=== PATIENT | male | born 1970 | race Caucasian/White ===

== ENCOUNTER 2017-02-24 14:00 | Emergency (ER) | payer BC ==
[~2017-02-24 14:00] MED LIST: BACLOFEN10 M1 PO; BENADRYL50 MG PO; BENTYL10 M1 PO; CHANTIX START M1 TAB PO; DILAUDID 2MG TAB2 MG PO; EC-NAPROSYN500 MG PO; ED BACLOFEN10 MG PO; ED PHENERG6 TAB/BOTT PO; GABAPENTIN800 MG PO; NEURONTIN800 M1 PO; NORCO 325 MG-51 TAB PO; OXYCODONE PO; PEN-VEE K500 MG PO; PERCOCET 325 MG1 TAB PO; REGLAN10 M2 PO; ROBAXIN500 MG PO; SOMA350 MG PO; ULTRAM50 M1 PO; VIVLODEX10 MG PO; ZOFRAN ODT8 M1 PO; ZOFRAN8 MG PO
== END 2017-02-24 16:36 | disposition home or self-care (01) ==
LOC: ED 14:00
DX: K59.03 Drug induced constipation (principal); T40.2X5A Adverse effect of other opioids, initial encounter; M54.5 Low back pain; G89.29 Other chronic pain; F11.90 Opioid use, unspecified, uncomplicated; Z87.442 Personal history of urinary calculi
CPT/HCPCS: Q9967

== ENCOUNTER 2017-08-18 14:09 | Emergency (ER) | payer BC ==
[~2017-08-18] VITALS: Ht 175.3 cm; Wt 90.9 kg
[2017-08-18] MEDS ORDERED: VIBRAMYCIN HYC100 MG PO (16:49)
[2017-08-18] MEDS ORDERED: PREDNISONE20 MG PO (16:49)
[2017-08-18 16:55] VITALS: BP 136/78
[2017-08-20] MEDS ORDERED: DULCOLAX5 M1 PO (20:07)
[2017-08-20] MEDS ORDERED: MIRALAX17 GM PO (20:07)
== END 2017-08-18 16:51 | disposition home or self-care (01) ==
LOC: ED 14:09
DX: J18.9 Pneumonia, unspecified organism (principal); R13.10 Dysphagia, unspecified; M54.5 Low back pain; G89.29 Other chronic pain; F17.200 Nicotine dependence, unspecified, uncomplicated; Z96.89 Presence of other specified functional implants
CPT/HCPCS: Q9967

== ENCOUNTER → 2017-08-31 | Day surgery (SDC) | payer BC ==
[2017-08-20 23:17] VITALS: BP 145/94
[~2017-08-31] MED LIST changes: +DULCOLAX5 M1 PO; +LASIX20 M1 PO; +MIRALAX17 GM PO; +PREDNISONE20 MG PO; +PRILOSEC 20MG20 MG PO; +VIBRAMYCIN HYC100 MG PO
== END ==
LOC: MSO 08:32
DX: R13.14 Dysphagia, pharyngoesophageal phase (principal); K21.0 Gastro-esophageal reflux disease with esophagitis; F17.210 Nicotine dependence, cigarettes, uncomplicated
CPT/HCPCS: 00740; A4649; J3010; J7120

== ENCOUNTER 2017-12-21 10:18 | Emergency (ER) | payer BC ==
[~2017-12-21] VITALS: Ht 175.3 cm; Wt 95.5 kg
[2017-12-21] MEDS ORDERED: GLUCOPHAGE1000 MG PO (10:40)
[2017-12-21] MEDS ORDERED: LIPITOR 10M10 MG/TAB PO (10:41)
[2017-12-21 10:57] LABS: EOS # 0.1 (0.04-0.40); EOS % 1.3 % (0.0-4.0); HEMATOCRIT 49.6 % (42.0-52.0); HEMOGLOBIN 16.3 g/dL (13.5-18.0); LYMPH# 1.1 (1.50-4.00); MEAN CELL VOLUME 87 fl (78-100); MEAN CORPUSCULAR HEMOGLOBIN 29 pg (27-31); MEAN CORPUSCULAR HGB CONC 33 g/dL (33-37); MONO # 0.8 (0.20-0.80); NEU # 5.7 (1.40-6.50); PLATELET COUNT 170 K/mm3 (130-400); RED BLOOD COUNT 5.69 M/mm3 (4.20-5.60); RED CELL DISTRIBUTION WIDTH 12.8 % (11.5-14.5); WHITE BLOOD COUNT 7.7 K/mm3 (4.8-10.8)
[2017-12-21 11:07] LABS: ALBUMIN 4.2 g/dL (3.5-5.0); BUN/CREATININE RATIO 17.8 (6.0-26.0); CALCIUM 9.2 mg/dL (8.4-10.2); POTASSIUM 4.3 mmol/L (3.6-5.0); TOTAL BILIRUBIN 0.4 mg/dL (0.2-1.3); TOTAL PROTEIN 7.4 g/dL (6.3-8.2)
[2017-12-21 11:10] LABS: CKMB ISOENZYME 1.2 ng/mL (0.6-3.5)
[2017-12-21 11:17] LABS: TROPONIN-I < 0.03 ng/mL (0.00-0.06)
[2017-12-21 11:18] LABS: D-DIMER 0.24 mg/L FEU (0.15-0.50)
[2017-12-21] MEDS ORDERED: PHENERGAN 25 TA25 MG PO (11:35)
[2017-12-21 13:05] VITALS: BP 119/79
== END 2017-12-21 13:07 | disposition home or self-care (01) ==
LOC: ED 10:18
PROVIDERS: Nurse Practitioner Primary Care
DX: F41.9 Anxiety disorder, unspecified (principal); R07.89 Other chest pain; E11.9 Type 2 diabetes mellitus without complications; Z79.84 Long term (current) use of oral hypoglycemic drugs; I10 Essential (primary) hypertension; E78.5 Hyperlipidemia, unspecified; K21.9 Gastro-esophageal reflux disease without esophagitis; Z87.442 Personal history of urinary calculi; F17.200 Nicotine dependence, unspecified, uncomplicated; R51 Headache
CPT/HCPCS: J1885; J2405; J7030

== ENCOUNTER 2018-07-05 14:42 | Emergency (ER) | payer BC ==
[~2018-07-05] VITALS: Wt 90.9 kg
[~2018-07-05 14:42] MED LIST changes: +GLUCOPHAGE1000 MG PO; +LIPITOR 10M10 MG/TAB PO; +OMEPRAZOLE40 MG PO; +PHENERGAN 25 TA25 MG PO; -PRILOSEC 20MG20 MG PO
[2018-07-05] MEDS ORDERED: JANUVIA25 MG (14:55)
[2018-07-05 15:46] LABS: BASO # 0.1 (0.02-0.10); EOS # 0.2 (0.04-0.40); EOS % 1.6 % (0.0-4.0); HEMATOCRIT 46.7 % (42.0-52.0); HEMOGLOBIN 15.8 g/dL (13.5-18.0); LYMPH# 3.4 (1.50-4.00); MEAN CELL VOLUME 87 fl (78-100); MEAN CORPUSCULAR HEMOGLOBIN 30 pg (27-31); MEAN CORPUSCULAR HGB CONC 34 g/dL (33-37); MEAN PLATELET VOLUME 9.7 fl (7.4-10.4); MONO # 0.6 (0.20-0.80); NEU # 5.8 (1.40-6.50); PLATELET COUNT 228 K/mm3 (130-400); RED BLOOD COUNT 5.36 M/mm3 (4.20-5.60); RED CELL DISTRIBUTION WIDTH 12.8 % (11.5-14.5)
[2018-07-05 15:50] LABS: ALBUMIN 4.1 g/dL (3.5-5.0); BUN/CREATININE RATIO 16.1 (6.0-26.0); CALCIUM 9.1 mg/dL (8.4-10.2); POTASSIUM 4.2 mmol/L (3.6-5.0); TOTAL BILIRUBIN 0.5 mg/dL (0.2-1.3); TOTAL PROTEIN 7.1 g/dL (6.3-8.2)
[2018-07-05] MEDS ORDERED: ZANTAC150 M1 PO (17:49)
[2018-07-05] MEDS ORDERED: PRILOSEC 20MG20 MG PO (17:49)
[2018-07-05] MEDS ORDERED: CARAFATE 1GM1 G PO (17:49)
[2018-07-05 18:29] VITALS: BP 125/70
== END 2018-07-05 18:40 | disposition home or self-care (01) ==
LOC: ED 14:42
PROVIDERS: Nurse Practitioner Primary Care
DX: K21.9 Gastro-esophageal reflux disease without esophagitis (principal); F17.210 Nicotine dependence, cigarettes, uncomplicated; K58.9 Irritable bowel syndrome, unspecified; G89.29 Other chronic pain; M54.9 Dorsalgia, unspecified
CPT/HCPCS: J1885; J2405; J7030; Q9967

== ENCOUNTER 2019-01-06 19:28 | Emergency (ER) | payer BC ==
[~2019-01-06] VITALS: Ht 177.8 cm; Wt 86.4 kg
[~2019-01-06 19:28] MED LIST changes: +CARAFATE 1GM1 G PO; +JANUVIA25 MG; +PRILOSEC 20MG20 MG PO; +ZANTAC150 M1 PO
[2019-01-06] MEDS ORDERED: XANAX0.5 M1 PO (19:40)
[2019-01-06] MEDS ORDERED: DESYREL50 MG PO (19:41)
[2019-01-06 20:11] LABS: URINE APPEARANCE HAZY; URINE COLOR YELLOW
[2019-01-06 20:12] LABS: PH-URINE 5.5 (5.0 - 8.0); URINE PROTEIN(semi-quant) TRACE mg/dL (NEGATIVE)
[2019-01-06 20:13] LABS: URINE BILIRUBIN NEGATIVE (NEGATIVE); URINE BLOOD TRACE (NEGATIVE); URINE GLUCOSE NEGATIVE (NEGATIVE); URINE KETONE NEGATIVE (NEGATIVE); URINE LEUKOCYTE ESTERASE NEGATIVE (NEGATIVE); URINE NITRATE NEGATIVE (NEGATIVE); URINE UROBILINOGEN NORMAL (NORMAL); URINE WBC 0-1 /hpf (0-3)
[2019-01-06 20:24] LABS: EOS # 0.1 (0.04-0.40); EOS % 1.1 % (0.0-4.0); HEMATOCRIT 46.3 % (42.0-52.0); HEMOGLOBIN 15.7 g/dL (13.5-18.0); LYMPH# 3.2 (1.50-4.00); MEAN CELL VOLUME 88 fl (78-100); MEAN CORPUSCULAR HEMOGLOBIN 30 pg (27-31); MEAN CORPUSCULAR HGB CONC 34 g/dL (33-37); MEAN PLATELET VOLUME 10.3 fl (7.4-10.4); MONO # 0.7 (0.20-0.80); NEU # 4.7 (1.40-6.50); PLATELET COUNT 228 K/mm3 (130-400); RED BLOOD COUNT 5.28 M/mm3 (4.20-5.60); RED CELL DISTRIBUTION WIDTH 12.8 % (11.5-14.5); WHITE BLOOD COUNT 8.8 K/mm3 (4.8-10.8)
[2019-01-06 21:15] LABS: ALBUMIN 3.9 g/dL (3.5-5.0); CALCIUM 9.1 mg/dL (8.4-10.2); TOTAL BILIRUBIN 0.3 mg/dL (0.2-1.3); TOTAL PROTEIN 6.8 g/dL (6.3-8.2)
[2019-01-06] MEDS ORDERED: PREDNISONE10 MG PO (23:50)
[2019-01-07 00:05] VITALS: BP 127/98
[2019-01-07] MEDS ORDERED: HYDROXYZINE HCL25 M1 PO (18:17)
== END 2019-01-07 00:05 | disposition home or self-care (01) ==
LOC: ED 19:28
PROVIDERS: Nurse Practitioner Family
DX: M54.5 Low back pain (principal); M54.16 Radiculopathy, lumbar region; F41.9 Anxiety disorder, unspecified; E11.9 Type 2 diabetes mellitus without complications; K58.9 Irritable bowel syndrome, unspecified; G56.00 Carpal tunnel syndrome, unspecified upper limb; F17.210 Nicotine dependence, cigarettes, uncomplicated; Z88.5 Allergy status to narcotic agent; Z90.49 Acquired absence of other specified parts of digestive tract; Z87.718 Personal history of other specified (corrected) congenital malformations of genitourinary system
CPT/HCPCS: J1100; J1885; J2405; J2550; J3010; J7030

== ENCOUNTER 2019-01-07 17:59 | Emergency (ER) | payer BC ==
[~2019-01-07] VITALS: Ht 175.3 cm; Wt 86.4 kg
[~2019-01-07 17:59] MED LIST changes: +DESYREL50 MG PO; +PREDNISONE10 MG PO; +XANAX0.5 M1 PO
[2019-01-07 18:04] VITALS: BP 137/88
[2019-01-07] MEDS ORDERED: HYDROXYZINE HCL25 M1 PO (18:17)
[2019-01-07 18:36] LABS: EOS % 0.2 % (0.0-4.0); HEMATOCRIT 47.6 % (42.0-52.0); HEMOGLOBIN 15.9 g/dL (13.5-18.0); LYMPH# 3.4 (1.50-4.00); MEAN CELL VOLUME 87 fl (78-100); MEAN CORPUSCULAR HEMOGLOBIN 29 pg (27-31); MEAN CORPUSCULAR HGB CONC 33 g/dL (33-37); MEAN PLATELET VOLUME 9.7 fl (7.4-10.4); MONO # 1.3 (0.20-0.80); PLATELET COUNT 261 K/mm3 (130-400); RED BLOOD COUNT 5.46 M/mm3 (4.20-5.60); RED CELL DISTRIBUTION WIDTH 12.5 % (11.5-14.5); WHITE BLOOD COUNT 17.3 K/mm3 (4.8-10.8)
[2019-01-07 18:37] LABS: NEU # 12.4 (1.40-6.50)
[2019-01-07 19:17] LABS: URINE APPEARANCE CLEAR; URINE COLOR YELLOW; URINE PROTEIN(semi-quant) TRACE mg/dL (NEGATIVE)
[2019-01-07 19:18] LABS: URINE BILIRUBIN NEGATIVE (NEGATIVE); URINE BLOOD TRACE (NEGATIVE); URINE GLUCOSE NEGATIVE (NEGATIVE); URINE KETONE NEGATIVE (NEGATIVE); URINE LEUKOCYTE ESTERASE NEGATIVE (NEGATIVE); URINE NITRATE NEGATIVE (NEGATIVE); URINE UROBILINOGEN NORMAL (NORMAL)
[2019-01-07 19:24] LABS: URINE WBC 0-1 /hpf (0-3)
[2019-01-07 19:25] LABS: URINE MUCUS PRESENT (NOT PRESENT)
== END 2019-01-07 23:15 | disposition left against medical advice (07) ==
LOC: ED 17:59
PROVIDERS: Family Medicine
DX: M54.5 Low back pain (principal); R10.9 Unspecified abdominal pain; M54.16 Radiculopathy, lumbar region; K21.9 Gastro-esophageal reflux disease without esophagitis; K58.9 Irritable bowel syndrome, unspecified; F17.210 Nicotine dependence, cigarettes, uncomplicated; Z90.49 Acquired absence of other specified parts of digestive tract; Z98.890 Other specified postprocedural states
CPT/HCPCS: J0595; J1885; J2405; J2765; Q9967

== ENCOUNTER 2019-05-03 11:13 | Emergency (ER) | payer BC ==
[~2019-05-03] VITALS: Ht 175.3 cm; Wt 87.3 kg
[~2019-05-03 11:13] MED LIST changes: +HYDROXYZINE HCL25 M1 PO; +OXYCODONE HCL E10 MG PO; +PREDNISONE20 M1 PO; +VALIUM 5MG T5 MG/TAB PO
[2019-05-03] MEDS ORDERED: DILAUDID4 M1 PO (11:26)
[2019-05-03 11:54] LABS: EOS # 0.1 (0.04-0.40); EOS % 0.6 % (0.0-4.0); HEMATOCRIT 51.9 % (42.0-52.0); HEMOGLOBIN 17.1 g/dL (13.5-18.0); LYMPH# 2.8 (1.50-4.00); MEAN CELL VOLUME 88 fl (78-100); MEAN CORPUSCULAR HEMOGLOBIN 29 pg (27-31); MEAN CORPUSCULAR HGB CONC 33 g/dL (33-37); MEAN PLATELET VOLUME 9.4 fl (7.4-10.4); MONO # 0.8 (0.20-0.80); PLATELET COUNT 217 K/mm3 (130-400); RED BLOOD COUNT 5.89 M/mm3 (4.20-5.60)
[2019-05-03 11:59] LABS: NEU # 9.3 (1.40-6.50)
[2019-05-03 12:07] LABS: CALCIUM 10.5 mg/dL (8.3-10.5)
[2019-05-03] MEDS ORDERED: DURAGESIC50 MCG/PAT TD (14:44)
[2019-05-03 14:45] VITALS: BP 108/76
== END 2019-05-03 14:53 | disposition home or self-care (01) ==
LOC: ED 11:13
PROVIDERS: Nurse Practitioner Primary Care
DX: T85.848A Pain due to other internal prosthetic devices, implants and grafts, initial encounter (principal); M54.9 Dorsalgia, unspecified; G89.29 Other chronic pain; E11.9 Type 2 diabetes mellitus without complications; K21.9 Gastro-esophageal reflux disease without esophagitis; F41.9 Anxiety disorder, unspecified; F17.210 Nicotine dependence, cigarettes, uncomplicated; Z98.890 Other specified postprocedural states; Z90.49 Acquired absence of other specified parts of digestive tract; Z96.9 Presence of functional implant, unspecified; Z88.5 Allergy status to narcotic agent
CPT/HCPCS: J2060; J2405; J3010; Q9967

== ENCOUNTER 2019-05-05 19:17 | Emergency (ER) | payer BC ==
[~2019-05-05] VITALS: Ht 177.8 cm; Wt 90.9 kg
[~2019-05-05 19:17] MED LIST changes: +DILAUDID4 M1 PO; +DURAGESIC50 MCG/PAT TD
[2019-05-05 20:04] LABS: BASO # 0.1 (0.02-0.10); EOS # 0.2 (0.04-0.40); EOS % 1.9 % (0.0-4.0); HEMATOCRIT 46.2 % (42.0-52.0); HEMOGLOBIN 15.1 g/dL (13.5-18.0); LYMPH# 3.3 (1.50-4.00); MEAN CELL VOLUME 89 fl (78-100); MEAN CORPUSCULAR HEMOGLOBIN 29 pg (27-31); MEAN CORPUSCULAR HGB CONC 33 g/dL (33-37); MEAN PLATELET VOLUME 9.2 fl (7.4-10.4); MONO # 0.8 (0.20-0.80); NEU # 4.3 (1.40-6.50); PLATELET COUNT 209 K/mm3 (130-400); RED BLOOD COUNT 5.18 M/mm3 (4.20-5.60); RED CELL DISTRIBUTION WIDTH 12.7 % (11.5-14.5); WHITE BLOOD COUNT 8.6 K/mm3 (4.8-10.8)
[2019-05-05 20:20] LABS: ALBUMIN 3.7 g/dL (3.5-5.0); CALCIUM 9.4 mg/dL (8.3-10.5); POTASSIUM 4.4 mmol/L (3.5-5.1); TOTAL BILIRUBIN 0.2 mg/dL (0.2-1.2); TOTAL PROTEIN 6.4 g/dL (6.4-8.3)
[2019-05-05 21:15] VITALS: BP 120/76
== END 2019-05-05 21:25 | disposition home or self-care (01) ==
LOC: ED 19:17
PROVIDERS: Nurse Practitioner Family
DX: G97.1 Other reaction to spinal and lumbar puncture (principal); M54.9 Dorsalgia, unspecified; E11.9 Type 2 diabetes mellitus without complications; G89.29 Other chronic pain; K21.9 Gastro-esophageal reflux disease without esophagitis; F41.9 Anxiety disorder, unspecified; F17.210 Nicotine dependence, cigarettes, uncomplicated; Z90.49 Acquired absence of other specified parts of digestive tract; Z88.5 Allergy status to narcotic agent
CPT/HCPCS: J3010

== ENCOUNTER 2019-07-28 13:20 | Emergency (ER) | payer BC ==
[2019-07-28] MEDS ORDERED: DIAZEPAM10 MG PO (13:28)
[2019-07-28 15:02] VITALS: BP 155/85
== END 2019-07-28 14:37 | disposition home or self-care (01) ==
LOC: ED 13:20
DX: M54.5 Low back pain (principal); G89.29 Other chronic pain; E11.9 Type 2 diabetes mellitus without complications; F41.9 Anxiety disorder, unspecified; K21.9 Gastro-esophageal reflux disease without esophagitis; F17.210 Nicotine dependence, cigarettes, uncomplicated; Z90.49 Acquired absence of other specified parts of digestive tract; Z96.9 Presence of functional implant, unspecified; Z88.5 Allergy status to narcotic agent; Z79.84 Long term (current) use of oral hypoglycemic drugs
CPT/HCPCS: J1885; J3010

== ENCOUNTER → 2019-11-14 | Outpatient (CLI) | payer BC ==
[~2019-11-14] VITALS: Wt 85.6 kg
[~2019-11-14] MED LIST changes: +DIAZEPAM10 MG PO; +DURAGESIC75 MCG/PAT TD; +OXYCODONE HCL10 M1 PO
[2019-11-14 16:37] VITALS: BP 135/106
== END ==
LOC: AMSURD 16:22
DX: Z48.02 Encounter for removal of sutures (principal)

== ENCOUNTER 2020-04-09 02:19 | Emergency (ER) | payer BC ==
[2020-04-09] MEDS ORDERED: DURAGESIC25 MCG/PAT TD (02:37)
[2020-04-09] MEDS ORDERED: HYDROXYZINE HCL25 M1 PO (02:38)
[2020-04-09] MEDS ORDERED: DESYREL 100MG100 MG PO (02:38)
[2020-04-09] MEDS ORDERED: MELATONIN10 M2 PO (02:39)
[2020-04-09] MEDS ORDERED: OMEPRAZOLE40 MG PO (02:40)
[2020-04-09] MEDS ORDERED: PHENERGAN 25 TA25 MG PO (02:40)
[2020-04-09] MEDS ORDERED: SEPTRA DS 8001 TAB PO (03:22)
[2020-04-09 03:29] VITALS: BP 135/96
== END 2020-04-09 03:40 | disposition home or self-care (01) ==
LOC: ED 02:19
DX: L73.9 Follicular disorder, unspecified (principal); L30.9 Dermatitis, unspecified; F17.210 Nicotine dependence, cigarettes, uncomplicated

== ENCOUNTER 2020-05-03 12:30 | Emergency (ER) | payer BC ==
[~2020-05-03] VITALS: Ht 175.3 cm; Wt 90.9 kg
[~2020-05-03 12:30] MED LIST changes: +DESYREL 100MG100 MG PO; +DURAGESIC25 MCG/PAT TD; +MELATONIN10 M2 PO; +SEPTRA DS 8001 TAB PO
[2020-05-03] MEDS ORDERED: MUPIROCIN2% TOP (13:00)
[2020-05-03] MEDS ORDERED: BACTRIM DS 8001 TAB PO (13:00)
[2020-05-03] MEDS ORDERED: VIBRAMYCIN HYC100 MG PO (14:08)
[2020-05-03 14:13] VITALS: BP 160/92
== END 2020-05-03 14:19 | disposition home or self-care (01) ==
LOC: ED 12:30
DX: R21 Rash and other nonspecific skin eruption (principal); T36.95XA Adverse effect of unspecified systemic antibiotic, initial encounter; F17.210 Nicotine dependence, cigarettes, uncomplicated; F41.9 Anxiety disorder, unspecified; K21.9 Gastro-esophageal reflux disease without esophagitis; Z86.14 Personal history of Methicillin resistant Staphylococcus aureus infection

== ENCOUNTER → 2020-07-19 | Outpatient (CLI) | payer BC ==
[~2020-07-19] MED LIST changes: +BACTRIM DS 8001 TAB PO; +MUPIROCIN2% TOP
== END ==
LOC: RAD 12:00
DX: R13.12 Dysphagia, oropharyngeal phase (principal)

== ENCOUNTER → 2020-10-15 | Outpatient (CLI) | payer BC ==
[2020-10-15 15:01] LABS: MAGNESIUM 1.75 mg/dL (1.60-2.60)
[2020-10-15 23:01] LABS: FOLATE (FOLIC ACID) 8.9 ng/mL (7.0-31.4)
[2020-10-16 01:06] LABS: SYPHILIS AB SCREEN w REFLEX Negative (Negative)
[2020-10-16 12:26] LABS: LYME DISEASE EIA Negative (Negative)
[2020-10-16 15:22] LABS: ANA SCREEN with REFLEX Negative (Negative)
== END ==
LOC: LAB 14:12
PROVIDERS: Psychiatry & Neurology Neurology
DX: E55.9 Vitamin D deficiency, unspecified (principal); G62.9 Polyneuropathy, unspecified; R73.02 Impaired glucose tolerance (oral); E53.9 Vitamin B deficiency, unspecified; E61.1 Iron deficiency; E07.9 Disorder of thyroid, unspecified; E53.1 Pyridoxine deficiency; E53.8 Deficiency of other specified B group vitamins; Z79.899 Other long term (current) drug therapy; E61.2 Magnesium deficiency

== ENCOUNTER → 2020-10-16 | Outpatient (CLI) | payer BC | LOC: RAD 10:00 | DX: R13.10 Dysphagia, unspecified (principal) | CPT/HCPCS: Q9967 ==

== ENCOUNTER 2020-10-22 08:30 | Outpatient (RCR) | payer BC | END 2020-12-03 | disposition home or self-care (01) | LOC: SPEECH | DX: R13.13 Dysphagia, pharyngeal phase (principal) ==

== ENCOUNTER → 2020-10-29 | Outpatient (CLI) | payer BC ==
[2020-10-29 16:56] LABS: ALBUMIN 4.1 g/dL (3.5-5.0)
[2020-10-29 16:59] LABS: TOTAL PROTEIN 7.2 g/dL (6.4-8.3)
[2020-10-29 17:01] LABS: TOTAL BILIRUBIN 0.6 mg/dL (0.2-1.2)
[2020-10-29 17:05] LABS: DIRECT BILIRUBIN 0.2 mg/dL (0.0-0.5)
== END ==
LOC: LAB 16:33
PROVIDERS: Psychiatry & Neurology Neurology
DX: Z01.89 Encounter for other specified special examinations (principal)

== ENCOUNTER 2021-03-09 18:46 | Emergency (ER) | payer BC ==
[2021-03-09 18:55] VITALS: BP 143/90
[2021-03-09] MEDS ORDERED: FOLIXAPURE5000 UNIT PO (19:04)
[2021-03-09] MEDS ORDERED: KLONOPIN 0.5MG0.5 MG PO (20:53)
== END 2021-03-09 20:58 | disposition home or self-care (01) ==
LOC: ED 18:46
DX: F42.4 Excoriation (skin-picking) disorder (principal); F42.9 Obsessive-compulsive disorder, unspecified; F41.9 Anxiety disorder, unspecified; Z88.6 Allergy status to analgesic agent
CPT/HCPCS: Q0177

== ENCOUNTER 2021-10-05 23:32 | Emergency (ER) | payer OTHER ==
[~2021-10-05] VITALS: Ht 177.8 cm; Wt 77.3 kg
[~2021-10-05 23:32] MED LIST changes: +FOLIXAPURE5000 UNIT PO; +KLONOPIN 0.5MG0.5 MG PO
[2021-10-06 00:51] LABS: BASO # 0.06 K/mm3 (0.02-0.10); EOS # 0.06 K/mm3 (0.04-0.40); EOS % 0.5 % (0.0-4.0); HEMATOCRIT 49.8 % (42.0-52.0); HEMOGLOBIN 16.9 g/dL (13.5-18.0); LYMPH# 2.43 K/mm3 (1.50-4.00); MEAN CELL VOLUME 87 fl (78-100); MEAN CORPUSCULAR HEMOGLOBIN 29 pg (27-31); MEAN CORPUSCULAR HGB CONC 34 g/dL (33-37); MEAN PLATELET VOLUME 9.5 fl (7.4-10.4); MONO # 0.84 K/mm3 (0.20-0.80); NEU # 8.38 K/mm3 (1.40-6.50); PLATELET COUNT 272 K/mm3 (130-400); RED BLOOD COUNT 5.76 M/mm3 (4.20-5.60); RED CELL DISTRIBUTION WIDTH 11.9 % (11.5-14.5); WHITE BLOOD COUNT 11.9 K/mm3 (4.8-10.8)
[2021-10-06] MEDS ORDERED: SEPTRA DS 8001 TAB PO (01:40)
[2021-10-06] MEDS ORDERED: KETOROLAC10 MG PO (01:40)
[2021-10-06] MEDS ORDERED: CEPHALEXIN500 M2 PO (01:40)
[2021-10-06] MEDS ORDERED: LORAZEPAM1 M1 PO (01:40)
[2021-10-06 01:55] VITALS: BP 137/87
== END 2021-10-06 02:07 | disposition home or self-care (01) ==
LOC: ED 23:32
PROVIDERS: Family Medicine
DX: L72.3 Sebaceous cyst (principal); F17.210 Nicotine dependence, cigarettes, uncomplicated
CPT/HCPCS: J0690; J1885; J2060

== ENCOUNTER 2022-06-28 17:18 | Observation (INO) | payer SELFPAY ==
[~2022-06-28] VITALS: Ht 163 cm; Wt 77.0 kg
[~2022-06-28 17:18] MED LIST changes: +CEPHALEXIN500 M2 PO; +KETOROLAC10 MG PO; +LORAZEPAM1 M1 PO
[2022-06-28 18:31] LABS: URINE WBC 0 /hpf (0-3)
[2022-06-28 18:41] LABS: BASO # 0.04 K/mm3 (0.02-0.10); EOS # 0.04 K/mm3 (0.04-0.40); EOS % 0.3 % (0.0-4.0); HEMATOCRIT 43.2 % (42.0-52.0); HEMOGLOBIN 14.8 g/dL (13.5-18.0); LYMPH# 1.59 K/mm3 (1.50-4.00); MEAN CELL VOLUME 84 fl (78-100); MEAN CORPUSCULAR HEMOGLOBIN 29 pg (27-31); MEAN CORPUSCULAR HGB CONC 34 g/dL (33-37); MEAN PLATELET VOLUME 9.3 fl (7.4-10.4); MONO # 1.23 K/mm3 (0.20-0.80); NEU # 10.26 K/mm3 (1.40-6.50); PLATELET COUNT 249 K/mm3 (130-400); RED BLOOD COUNT 5.15 M/mm3 (4.20-5.60); RED CELL DISTRIBUTION WIDTH 11.4 % (11.5-14.5); WHITE BLOOD COUNT 13.2 K/mm3 (4.8-10.8)
[2022-06-28 18:50] LABS: URINE APPEARANCE CLEAR; URINE COLOR YELLOW; URINE PROTEIN(semi-quant) NEGATIVE (NEGATIVE)
[2022-06-28 18:51] LABS: URINE BILIRUBIN NEGATIVE (NEGATIVE); URINE BLOOD TRACE (NEGATIVE); URINE KETONE NEGATIVE (NEGATIVE); URINE LEUKOCYTE ESTERASE NEGATIVE (NEGATIVE); URINE NITRATE NEGATIVE (NEGATIVE); URINE UROBILINOGEN NORMAL (NORMAL)
[2022-06-28 21:12] LABS: POTASSIUM 4.4 mmol/L (3.5-5.1)
[2022-06-28 21:13] LABS: CALCIUM 9.7 mg/dL (8.3-10.5)
[2022-06-28 21:14] LABS: TOTAL PROTEIN 7.4 g/dL (6.4-8.3)
[2022-06-28 21:16] LABS: TOTAL BILIRUBIN 0.9 mg/dL (0.2-1.2)
[2022-06-29 04:54] LABS: POTASSIUM 3.7 mmol/L (3.5-5.1)
[2022-06-29 04:55] LABS: CALCIUM 9.8 mg/dL (8.3-10.5)
[2022-06-29 22:59] VITALS: BP 104/75
[2022-06-30 02:02] VITALS: BP 102/68
[2022-06-30 05:38] VITALS: BP 103/70
[2022-06-30 07:29] LABS: POTASSIUM 3.9 mmol/L (3.5-5.1)
[2022-06-30 07:31] LABS: CALCIUM 9.1 mg/dL (8.3-10.5)
[2022-06-30 09:03] LABS: BASO # 0.03 K/mm3 (0.02-0.10); EOS # 0.14 K/mm3 (0.04-0.40); EOS % 1.7 % (0.0-4.0); HEMATOCRIT 43.5 % (42.0-52.0); HEMOGLOBIN 14.2 g/dL (13.5-18.0); LYMPH# 1.54 K/mm3 (1.50-4.00); MEAN CELL VOLUME 87 fl (78-100); MEAN CORPUSCULAR HEMOGLOBIN 28 pg (27-31); MEAN CORPUSCULAR HGB CONC 33 g/dL (33-37); MEAN PLATELET VOLUME 9.5 fl (7.4-10.4); MONO # 0.85 K/mm3 (0.20-0.80); NEU # 5.79 K/mm3 (1.40-6.50); PLATELET COUNT 247 K/mm3 (130-400); RED CELL DISTRIBUTION WIDTH 11.7 % (11.5-14.5); WHITE BLOOD COUNT 8.4 K/mm3 (4.8-10.8)
[2022-06-30 09:29] VITALS: BP 113/77
[2022-06-30] MEDS ORDERED: SEPTRA DS 8001 TAB PO (13:06)
[2022-06-30] MEDS ORDERED: PERCOCET 325 MG1 TA3 PO (13:08)
== END 2022-06-30 13:45 | disposition home or self-care (01) ==
LOC: ED 17:18 → MED/SURG 06-29 18:25
PROVIDERS: ADMIT Family Medicine
DX: L03.211 Cellulitis of face (principal); F41.9 Anxiety disorder, unspecified; G89.29 Other chronic pain; F17.210 Nicotine dependence, cigarettes, uncomplicated
CPT/HCPCS: G0378; J0690; J1815; J1885; J2060; J7030

== ENCOUNTER 2024-08-11 18:49 | Emergency (ER) | payer SELFPAY ==
[~2024-08-11] VITALS: Wt 76.1 kg
[~2024-08-11 18:49] MED LIST changes: +PERCOCET 325 MG1 TA3 PO
[2024-08-11] MEDS ORDERED: Glucagon 1 MG VIAL IV ONE (19:30)
[2024-08-11] MEDS ORDERED: NS 1,000 ML IV SCH (19:45)
[2024-08-11] MEDS ORDERED: Ondansetron 4 MG/2 ML VIAL IV ONE (20:15)
[2024-08-11] MEDS ORDERED: ATORVASTATIN CA80 MG PO (20:43)
[2024-08-11] MEDS ORDERED: BASAGLAR K100 UNIT/1 SQ (20:44)
[2024-08-11] MEDS ORDERED: FLUOXETINE HCL20 MG PO (20:44)
[2024-08-11] MEDS ORDERED: ELIQUIS5 MG PO (20:44)
[2024-08-11] MEDS ORDERED: PREGABALIN75 MG PO (20:46)
[2024-08-11] MEDS ORDERED: GLUCOPHAGE PO (20:46)
[2024-08-11] MEDS ORDERED: HUMALOG KWIKPEN SQ (20:46)
[2024-08-11] MEDS ORDERED: ROBAXIN 75750 MG/TA1 (20:47)
[2024-08-11] MEDS ORDERED: TRAMADOL 50 MG TAB PO (20:52)
[2024-08-11] MEDS ORDERED: Ketorolac 30 MG/ML VIAL IV ONE (22:45)
[2024-08-11 23:19] VITALS: BP 130/78
== END 2024-08-11 23:19 | disposition short-term general hospital (02) ==
LOC: ED 18:49
DX: T18.128A Food in esophagus causing other injury, initial encounter (principal); F17.210 Nicotine dependence, cigarettes, uncomplicated; W44.8XXA Other foreign body entering into or through a natural orifice, initial encounter
CPT/HCPCS: J1610; J1885; J2405; J7030